=== PATIENT | female | born 1980 | race African-American/Black ===

== ENCOUNTER 2016-11-06 18:24 | Inpatient (IN) | payer MEDICAID ==
[~2016-11-06 18:24] MED LIST: GLYCOPYRROLATE INJ 0.4 MG/2 ML VIAL ONE; NEOSTIGMINE METHYLSULFATE 10 MG/10 ML VIAL ONE; ROCURONIUM BROMIDE INJ 50 MG/5 ML VIAL IV ONE; SUCCINYLCHOLINE CHLORIDE INJ 200 MG/10 ML VIAL ONE
[2016-11-06] MEDS ORDERED: MORPHINE SULFATE 10 MG/ML INJ IV ONE (18:34)
[2016-11-06] MEDS ORDERED: ONDANSETRON HCL INJ/PF 4 MG/2 ML SDV IV ONE (18:34)
[2016-11-06] MEDS ORDERED: NORMAL SALINE 1000 ML 1,000 ML IV PRN (18:34)
[2016-11-06] MEDS ORDERED: CEFAZOLIN 2 GM/D5W RTU 50 ML IV ONE (18:35)
[2016-11-06] MEDS ORDERED: DIPH/PERTUSS(ACELL)/TETANUS VAC/PF 0.5 ML SYR (>=10YO) IM ONE (18:35)
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
[2016-11-06 19:18] LABS: ABSOLUTE MONOCYTES (AUTO) 0.4 10^3/uL (0.1-1.4); ABSOLUTE NEUT (AUTO) 6.7 10^3/uL (1.7-8.2); BASOPHILS % (AUTO) 0.2 % (0-2); EOSINOPHILS % (AUTO) 0.1 % (0-6); HEMATOCRIT 37.7 % (36.0-47.0); HEMOGLOBIN 12.7 g/dL (12.0-15.5); HGB HCT DIFFERENCE 0.4; LYMPHOCYTES % (AUTO) 21.9 % (13-45); MEAN CORPUSCULAR HEMOGLOBIN 30.9 pg (27.0-33.4); MEAN CORPUSCULAR HGB CONC 33.6 g/dL (32.0-36.0); MEAN CORPUSCULAR VOLUME 92 fl (80-97); MONOCYTES % (AUTO) 4.3 % (3-13); RED BLOOD COUNT 4.11 10^6/uL (3.72-5.28); RED CELL DISTRIBUTION WIDTH 13.7 % (11.5-14.0); SEGMENTED NEUTROPHILS % (AUTO) 73.5 % (42-78); WHITE BLOOD COUNT 9.1 10^3/uL (4.0-10.5)
[2016-11-06] MEDS ORDERED: BACITRACIN INJ 50,000 UNIT VIAL ONE (19:22)
[2016-11-06] MEDS ORDERED: DEXAMETHASONE SOD PHOSPHATE INJ 4 MG/1 ML VIAL ONE (19:25)
[2016-11-06] MEDS ORDERED: MIDAZOLAM 2 MG/2 ML INJ ONE (19:25)
[2016-11-06] MEDS ORDERED: FENTANYL CITRATE INJ/PF 250 MCG/5 ML AMPULE ONE (19:25)
[2016-11-06] MEDS ORDERED: ONDANSETRON HCL INJ/PF 4 MG/2 ML SDV ONE (19:25)
[2016-11-06] MEDS ORDERED: MORPHINE SULFATE 10 MG/ML INJ ONE (19:26)
[2016-11-06] MEDS ORDERED: PROPOFOL INJ 200 MG/20 ML VIAL IV ONE (19:26)
[2016-11-06 19:30] LABS: ALANINE AMINOTRANSFERASE 58 U/L (9-52); ALBUMIN 4.1 g/dL (3.5-5.0); ALKALINE PHOSPHATASE 62 U/L (38-126); ANION GAP 9 (5-19); ASPARTATE AMINO TRANSFERASE 92 U/L (14-36); BILIRUBIN,TOTAL 0.4 mg/dL (0.2-1.3); BLOOD UREA NITROGEN 11 mg/dL (7-20); CALCIUM 9.3 mg/dL (8.4-10.2); CARBON DIOXIDE 26 mmol/L (22-30); CHLORIDE 105 mmol/L (98-107); CREATININE RESULT 0.61 mg/dL (0.52-1.25); GLUCOSE 126 mg/dL (75-110); POTASSIUM 3.7 mmol/L (3.6-5.0); SODIUM 140.1 mmol/L (137-145); TOTAL PROTEIN 6.6 g/dL (6.3-8.2)
[2016-11-06] MEDS ORDERED: BACITRACIN INJ 50,000 UNIT VIAL IR ONE (20:23)
[2016-11-06] MEDS ORDERED: PROMETHAZINE HCL INJ 25 MG/1 ML VIAL IV PRN ×2 (21:19)
[2016-11-06] MEDS ORDERED: MORPHINE SULFATE 10 MG/ML INJ IV PRN (21:19)
[2016-11-06] MEDS ORDERED: FENTANYL CITRATE INJ/PF 100 MCG/2 ML AMPUL IV PRN ×3 (21:19)
[2016-11-06] MEDS ORDERED: DIPHENHYDRAMINE HCL 50 MG/ML VIAL IV PRN (21:19)
[2016-11-06] MEDS ORDERED: MEPERIDINE HCL/PF INJ 25 MG/1 ML DISP.SYRIN IV PRN (21:19)
[2016-11-06] MEDS ORDERED: LIDOCAINE 1% INJ-PF (10 MG/ML) 30 ML SDV ONE (21:54)
[2016-11-06] MEDS ORDERED: BUPIVACAINE HCL 0.25% /EPINEPHRINE INJ/PF 30 ML SDV ONE (21:54)
[2016-11-06] MEDS ORDERED: FENTANYL CITRATE INJ/PF 100 MCG/2 ML AMPUL ONE (21:55)
[2016-11-06] MEDS ORDERED: BUPIVACAINE HCL 0.25% /EPINEPHRINE INJ/PF 30 ML SDV INJ ONE (23:01)
[2016-11-06] MEDS ORDERED: LIDOCAINE 1% INJ-PF (10 MG/ML) 30 ML SDV INJ ONE (23:02)
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
[2016-11-06] MEDS ORDERED: RINGERS SOLUTION,LACTATED 1,000 ML IV PRN (23:57)
[2016-11-06] MEDS ORDERED: ERTAPENEM SODIUM 1 GM in NORMAL SALINE 50 ML IV PRN (23:58)
[2016-11-07] MEDS ORDERED: ACETAMINOPHEN 100 ML IV ONE (00:01)
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
[2016-11-07] MEDS: ONDANSETRON HCL INJ/PF 4 MG/2 ML SDV IV PRN ×3 (01:57→17:52)
[2016-11-07] MEDS: MORPHINE SULFATE 10 MG/ML INJ IV PRN ×3 (05:45→12:30)
[2016-11-07 06:40] LABS: HEMATOCRIT 37.2 % (36.0-47.0); HEMOGLOBIN 12.5 g/dL (12.0-15.5); HGB HCT DIFFERENCE 0.3; MEAN CORPUSCULAR HEMOGLOBIN 30.8 pg (27.0-33.4); MEAN CORPUSCULAR HGB CONC 33.6 g/dL (32.0-36.0); MEAN CORPUSCULAR VOLUME 92 fl (80-97); RED BLOOD COUNT 4.06 10^6/uL (3.72-5.28); RED CELL DISTRIBUTION WIDTH 13.6 % (11.5-14.0); WHITE BLOOD COUNT 15.6 10^3/uL (4.0-10.5)
[2016-11-07 07:01] LABS: ALANINE AMINOTRANSFERASE 58 U/L (9-52); ALBUMIN 3.8 g/dL (3.5-5.0); ALKALINE PHOSPHATASE 54 U/L (38-126); ANION GAP 9 (5-19); ASPARTATE AMINO TRANSFERASE 71 U/L (14-36); BILIRUBIN,TOTAL 0.5 mg/dL (0.2-1.3); BLOOD UREA NITROGEN 8 mg/dL (7-20); CALCIUM 8.9 mg/dL (8.4-10.2); CARBON DIOXIDE 24 mmol/L (22-30); CHLORIDE 106 mmol/L (98-107); CREATININE RESULT 0.45 mg/dL (0.52-1.25); GLUCOSE 139 mg/dL (75-110); MAGNESIUM 1.6 mg/dL (1.6-2.3); PHOSPHORUS 3.7 mg/dL (2.5-4.5); POTASSIUM 4.1 mmol/L (3.6-5.0); SODIUM 139.3 mmol/L (137-145); TOTAL PROTEIN 6.1 g/dL (6.3-8.2)
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
[2016-11-07] MEDS: PANTOPRAZOLE SODIUM 40 MG VIAL IV SCH ×2 (09:30→22:01)
[2016-11-07] MEDS: DOCUSATE SODIUM 100 MG CAPSULE PO SCH ×2 (09:30→17:05)
[2016-11-07] MEDS: ENOXAPARIN SODIUM INJ 40 MG/0.4 ML DISP.SYRIN SUBCUT SCH (10:36)
[2016-11-07] MEDS ORDERED: ENOXAPARIN SODIUM INJ 40 MG/0.4 ML DISP.SYRIN SUBCUT ONE (11:00)
[2016-11-07] MEDS ORDERED: PROMETHAZINE HCL INJ 25 MG/1 ML VIAL ONE (13:04)
[2016-11-07] MEDS: HYDROMORPHONE HCL INJ/PF 2 MG/ML AMPULE IV PRN ×2 (17:52→22:01)
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
[2016-11-07] MEDS: PROMETHAZINE HCL INJ 25 MG/1 ML VIAL IV PRN (22:01)
[2016-11-08] MEDS: HYDROMORPHONE HCL INJ/PF 2 MG/ML AMPULE IV PRN ×3 (05:03→19:39)
[2016-11-08] MEDS: PROMETHAZINE HCL INJ 25 MG/1 ML VIAL IV PRN (05:03)
[2016-11-08] MEDS: ENOXAPARIN SODIUM INJ 40 MG/0.4 ML DISP.SYRIN SUBCUT SCH (08:16)
[2016-11-08] MEDS: PANTOPRAZOLE SODIUM 40 MG VIAL IV SCH ×2 (09:44→21:08)
[2016-11-08] MEDS: DOCUSATE SODIUM 100 MG CAPSULE PO SCH ×2 (09:44→17:20)
--- NOTE | 2016-11-08 11:54 | PDOC PROGRESS REPORT ---
Subjective Progress Note for:: 11/08/16 Subjective:: No nausea. Nasogastric tube draining minimal amounts of gastric contents. Physical Exam Vital Signs: Temp Pulse Resp BP Pulse Ox 97.8 F 88 22 H 145/79 H 97 11/08/16 08:00 11/08/16 08:00 11/08/16 08:00 11/08/16 08:00 11/08/16 08:00 Intake & Output 11/07/16 11/08/16 11/09/16 06:59 06:59 06:59 Intake Total 200 3477 Output Total 930 2400 Balance -730 1077 Weight 61.7 kg 61.5 kg General appearance: PRESENT: no acute distress GI/Abdominal exam: PRESENT: other - Operative dressing removed. Skin flaps viable with some irregularity at the approximation site. All intervening waleska removed from approximated tissue. Drain suction is preserved. There is some seropurulent discharge from the wound. There is no foul smell. Results Laboratory Results: 11/07/16 05:56 11/07/16 05:56 Impressions: Fluoroscopy 11/06/16 00:00 IMPRESSION: IMAGE(S) OBTAINED DURING PROCEDURE. Abdomen/Pelvis CT 11/06/16 18:33 IMPRESSION: SOFT TISSUE INJURY INVOLVING THE ABDOMINAL WALL INCLUDING SUBCUTANEOUS EMPHYSEMA WHICH COURSES DEEP TO THE RIGHT DISTAL RADIUS ANTERIOR MUSCLE BUT REMAINS SUPERFICIAL TO THE OBLIQUE AND RECTUS ABDOMINIS MUSCLES. CORRELATE WITH PHYSICAL EXAM FINDINGS AND MECHANISM OF INJURY. NO DEFINITE EVIDENCE OF PERITONEAL/INTRAABDOMINAL INVOLVEMENT. Chest X-Ray 11/06/16 18:34 IMPRESSION: NO ACUTE RADIOGRAPHIC FINDING IN THE CHEST. Wrist X-Ray 11/06/16 18:34 IMPRESSION: DISTAL RADIAL FRACTURE ABOVE. Assessment & Plan - Diagnosis (1) Injury of abdominal wall Qualifiers: Encounter type: initial encounter Qualified Code(s): S39.81XA - Other specified injuries of abdomen, initial encounter Is this a current diagnosis for this admission?: YesPlan: 1. Patient is 2 days status post exploratory laparotomy, debridement of abdominal wall drain placement, primary anastomosis. He doing reasonably well however her abdominal wall injury may require additional drainage and/or evacuation; this was emphasized to the patient 2. Clamp NG tube, if this is tolerated, we will remove it Review. Will attempt to get her up out of bed into chair which will be difficult given her left arm fracture which has been stabilized, however patient is motivated.
[2016-11-08] MEDS: ERTAPENEM SODIUM 1 GM in NORMAL SALINE 50 ML IV SCH (15:27)
[2016-11-09] MEDS: HYDROMORPHONE HCL INJ/PF 2 MG/ML AMPULE IV PRN ×3 (00:32→13:46)
[2016-11-09] MEDS: ENOXAPARIN SODIUM INJ 40 MG/0.4 ML DISP.SYRIN SUBCUT SCH (07:36)
[2016-11-09] MEDS: PANTOPRAZOLE SODIUM 40 MG VIAL IV SCH ×2 (10:08→22:41)
[2016-11-09] MEDS: DOCUSATE SODIUM 100 MG CAPSULE PO SCH ×2 (10:09→17:39)
--- NOTE | 2016-11-09 11:56 | PDOC PROGRESS REPORT ---
Subjective Progress Note for:: 11/09/16 Subjective:: Patient hiking in the halls, voiding, tolerating clear liquids. Physical Exam Vital Signs: Temp Pulse Resp BP Pulse Ox 98.1 F 84 16 132/68 H 100 11/09/16 07:33 11/09/16 07:33 11/09/16 07:33 11/09/16 07:33 11/09/16 07:33 Intake & Output 11/08/16 11/09/16 11/10/16 06:59 06:59 06:59 Intake Total 3477 3032 Output Total 2400 630 Balance 1077 2402 Weight 61.5 kg 62.3 kg General appearance: PRESENT: no acute distress GI/Abdominal exam: PRESENT: other - Midline wound examined. Less hostility less drainage. Serous sanguinous fluid out of both drains. Results Laboratory Results: 11/07/16 05:56 11/07/16 05:56 Impressions: Fluoroscopy 11/06/16 00:00 IMPRESSION: IMAGE(S) OBTAINED DURING PROCEDURE. Abdomen/Pelvis CT 11/06/16 18:33 IMPRESSION: SOFT TISSUE INJURY INVOLVING THE ABDOMINAL WALL INCLUDING SUBCUTANEOUS EMPHYSEMA WHICH COURSES DEEP TO THE RIGHT DISTAL RADIUS ANTERIOR MUSCLE BUT REMAINS SUPERFICIAL TO THE OBLIQUE AND RECTUS ABDOMINIS MUSCLES. CORRELATE WITH PHYSICAL EXAM FINDINGS AND MECHANISM OF INJURY. NO DEFINITE EVIDENCE OF PERITONEAL/INTRAABDOMINAL INVOLVEMENT. Chest X-Ray 11/06/16 18:34 IMPRESSION: NO ACUTE RADIOGRAPHIC FINDING IN THE CHEST. Wrist X-Ray 11/06/16 18:34 IMPRESSION: DISTAL RADIAL FRACTURE ABOVE. Assessment & Plan - Diagnosis (1) Injury of abdominal wall Qualifiers: Encounter type: initial encounter Qualified Code(s): S39.81XA - Other specified injuries of abdomen, initial encounter Is this a current diagnosis for this admission?: Yes (2) Abdominal injury Qualifiers: Encounter type: initial encounter Qualified Code(s): S39.91XA - Unspecified injury of abdomen, initial encounter Is this a current diagnosis for this admission?: YesPlan: 1. Patient making good progress now 3 days status post floor towards surgery right hemicolectomy abdominal wall debridement and drainage. She is extremely motivated and doing well. 2. Will switch her to by mouth pain medication, advance diet, Hep-Lock IV, and keep drains in place and continue intravenous antibiotics.
[2016-11-09] MEDS: ERTAPENEM SODIUM 1 GM in NORMAL SALINE 50 ML IV SCH (14:09)
[2016-11-09] MEDS ORDERED: DOCUSATE SODIUM 100 MG/10 ML UDC PO SCH (18:00)
[2016-11-09] MEDS: OXYCODONE-ACETAMINOPHEN 5-325 MG TABLET PO PRN (19:10)
[2016-11-10] MEDS: OXYCODONE-ACETAMINOPHEN 5-325 MG TABLET PO PRN ×4 (00:08→20:53)
[2016-11-10] MEDS: ENOXAPARIN SODIUM INJ 40 MG/0.4 ML DISP.SYRIN SUBCUT SCH (08:08)
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
[2016-11-10] MEDS: DOCUSATE SODIUM 100 MG CAPSULE PO SCH ×2 (10:23→17:06)
[2016-11-10] MEDS ORDERED: BISACODYL 10 MG SUPP.RECT PR PRN (18:32)
[2016-11-10] MEDS: ERTAPENEM SODIUM 1 GM in NORMAL SALINE 50 ML IV SCH (20:33)
[2016-11-11] MEDS: OXYCODONE-ACETAMINOPHEN 5-325 MG TABLET PO PRN ×4 (02:49→20:41)
[2016-11-11] MEDS: DOCUSATE SODIUM 100 MG CAPSULE PO SCH ×2 (09:40→18:44)
[2016-11-11] MEDS: ENOXAPARIN SODIUM INJ 40 MG/0.4 ML DISP.SYRIN SUBCUT SCH (11:59)
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
[2016-11-11] MEDS: ERTAPENEM SODIUM 1 GM in NORMAL SALINE 50 ML IV SCH (15:22)
[2016-11-12] MEDS: OXYCODONE-ACETAMINOPHEN 5-325 MG TABLET PO PRN ×3 (01:14→11:06)
[2016-11-12] MEDS: AMOXICILLIN TR/POT CLAVULANATE 500-125 MG TAB PO SCH ×2 (06:22→11:41)
[2016-11-12] MEDS: ENOXAPARIN SODIUM INJ 40 MG/0.4 ML DISP.SYRIN SUBCUT SCH (08:39)
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
[2016-11-12 11:38] VITALS: BP 135/84
[2016-11-12] MEDS: DOCUSATE SODIUM 100 MG CAPSULE PO SCH (11:42)
== END 2016-11-12 12:56 | disposition home or self-care (01) | DRG 330 ==
LOC: ER 18:24 → UNDOADMIN 19:31 → EH 19:31 → UNDOADMIN 23:49 → 4S 11-07 01:30 → EH 11-07 01:30
PROVIDERS: ADMIT Surgery; ATTEND Surgery
PROC: 0PSJXZZ Reposition Left Radius, External Approach (ICD-10-PCS; 2016-11-06)
PROC: 0DTF0ZZ Resection of Right Large Intestine, Open Approach (ICD-10-PCS; principal; 2016-11-06 19:30)
DX: S36.50 Unspecified injury of colon (principal); T79.7XXA Traumatic subcutaneous emphysema, initial encounter; S52.502A Unspecified fracture of the lower end of left radius, initial encounter for closed fracture; S39.81XA Other specified injuries of abdomen, initial encounter; G43.909 Migraine, unspecified, not intractable, without status migrainosus; Z91.041 Radiographic dye allergy status; F17.210 Nicotine dependence, cigarettes, uncomplicated; D25.9 Leiomyoma of uterus, unspecified; T14.8 Other injury of unspecified body region; V27.0XXA Motorcycle driver injured in collision with fixed or stationary object in nontraffic accident, initial encounter; Y93.55 Activity, bike riding; Y92.096 Garden or yard of other non-institutional residence as the place of occurrence of the external cause; Z83.3 Family history of diabetes mellitus; Z82.49 Family history of ischemic heart disease and other diseases of the circulatory system; Z80.3 Family history of malignant neoplasm of breast; Z86.14 Personal history of Methicillin resistant Staphylococcus aureus infection
CPT/HCPCS: 00790; 36415; 71010; 74176; 80053; 83735; 84100; 84703; 85025; 85027; 86850; 86900; 86901; 88307; 90471; 90715; 94799; 96365; 96375; 99291; J0131; J0330; J0690; J1100; J1170; J1335; J1650; J2250; J2270; J2405; J2550; J2704; J3010; J3490; J7030; J7120; S0164

== ENCOUNTER 2016-11-15 14:54 | Emergency (ER) | payer MEDICAID ==
[2016-11-15 15:01] VITALS: BP 119/78
--- NOTE | 2016-11-15 15:16 | ER Document Report ---
ED Medical Screen (RME) - General Stated Complaint: PAIN/DRAINAGE AT SURGERY SITE Time seen by provider: 15:12 Mode of Arrival: Wheelchair Information source: Patient Notes: 36-year-old female presents to ED with a colectomy when they took the left half of her colon out. She was told to come to the ER she had any drainage. She has serosanguineous drainage at the site which is covered by draining dressings and abdominal binder. I have greeted and performed a rapid initial assessment of this patient. A comprehensive ED assessment and evaluation of the patient, analysis of test results and completion of medical decision making process will be conducted by an additional ED providers. TRAVEL OUTSIDE OF THE [place] 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
[2016-11-15 15:45] LABS: ABSOLUTE LYMPHOCYTES (AUTO) 1.6 10^3/uL (0.5-4.7); ABSOLUTE MONOCYTES (AUTO) 0.5 10^3/uL (0.1-1.4); BASOPHILS % (AUTO) 0.7 % (0-2); EOSINOPHILS % (AUTO) 0.9 % (0-6); HEMATOCRIT 36.3 % (36.0-47.0); HEMOGLOBIN 12.4 g/dL (12.0-15.5); HGB HCT DIFFERENCE 0.9; LYMPHOCYTES % (AUTO) 30.6 % (13-45); MEAN CORPUSCULAR HEMOGLOBIN 31.3 pg (27.0-33.4); MEAN CORPUSCULAR HGB CONC 34.3 g/dL (32.0-36.0); MEAN CORPUSCULAR VOLUME 91 fl (80-97); MONOCYTES % (AUTO) 9.8 % (3-13); RED BLOOD COUNT 3.98 10^6/uL (3.72-5.28); RED CELL DISTRIBUTION WIDTH 13.7 % (11.5-14.0); WHITE BLOOD COUNT 5.2 10^3/uL (4.0-10.5)
[2016-11-15 15:51] LABS: APPEARANCE,URINE CLEAR; BILIRUBIN,URINE NEGATIVE (NEGATIVE); GLUCOSE, URINE NEGATIVE (NEGATIVE); KETONES,URINE NEGATIVE (NEGATIVE); LEUKOCYTE ESTERASE,URINE TRACE (NEGATIVE); NITRITE,URINE NEGATIVE (NEGATIVE); PROTEIN,URINE NEGATIVE (NEGATIVE); URINE SPECIFIC GRAVITY 1.016; UROBILINOGEN,URINE NEGATIVE mg/dL (<2.0)
[2016-11-15 16:03] LABS: ALANINE AMINOTRANSFERASE 53 U/L (9-52); ALBUMIN 4.2 g/dL (3.5-5.0); ALKALINE PHOSPHATASE 60 U/L (38-126); ANION GAP 11 (5-19); ASPARTATE AMINO TRANSFERASE 42 U/L (14-36); BILIRUBIN,TOTAL 0.5 mg/dL (0.2-1.3); BLOOD UREA NITROGEN 10 mg/dL (7-20); CARBON DIOXIDE 27 mmol/L (22-30); CHLORIDE 102 mmol/L (98-107); CREATININE RESULT 0.43 mg/dL (0.52-1.25); GLUCOSE 97 mg/dL (75-110); LIPASE 118.6 U/L (23-300); POTASSIUM 4.1 mmol/L (3.6-5.0)
--- NOTE | 2016-11-15 16:26 | ER Document Report ---
[id number]/DRAINAGE AT SURGERY SITE Mode of Arrival: Wheelchair Information source: Patient Notes: 36-year-old female who had a colectomy performed after she was punctured by a tree branch one week ago presents with complaints of concerns for discharge of the incision site. Patient denies any fevers or chills nausea vomiting or diarrhea. Patient denies any abdominal pain that is new. Patient notes the drainage is clear but her discharge instructions told her to return immediately if there is any discharge and therefore she does present with clear discharge TRAVEL OUTSIDE OF THE [place] IN LAST 30 DAYS: No - HPI Onset: Just prior to arrival Onset/Duration: Sudden Quality of pain: No pain Severity: Mild Pain Level: Denies Associated symptoms: None Exacerbated by: Denies Relieved by: Denies Similar symptoms previously: Yes Recently seen / treated by doctor: Yes - Related Data Allergies/Adverse Reactions: Iodinated Contrast Media - Oral and [IV Dye, Iodine Containing] Allergy ( Verified 11/15/16 15:16) shellfish derived Allergy (Verified 11/15/16 15:16) Past Medical History - General Information source: Patient - Social History Smoking Status: Former Smoker Cigarette use (# per day): No Chew tobacco use (# tins/day): No Smoking Education Provided: No Frequency of alcohol use: None Drug Abuse: None Family History: Reviewed & Not Pertinent Patient has suicidal ideation: No Patient has homicidal ideation: No Neurological Medical History: Reports: Hx Migraine Renal/ Medical History: Denies: Hx Peritoneal Dialysis Skin Medical History: Reports Hx MRSA Past Surgical History: Reports: Hx Abdominal Surgery, Hx Section - x2, Other - Penetrating abdominal trauma with bowel resection - Immunizations Immunizations up to date: Yes Hx Diphtheria, Pertussis, Tetanus Vaccination: Yes Review of Systems - Review of Systems Notes: PHYSICAL EXAMINATION: GENERAL: Well-appearing, well-nourished and in no acute distress. HEAD: Atraumatic, normocephalic. EYES: Pupils equal round and reactive to light, extraocular movements intact, conjunctiva are normal. ENT: Nares patent, oropharynx clear without exudates. Moist mucous membranes. NECK: Normal range of motion, supple without lymphadenopathy LUNGS: Breath sounds clear to auscultation bilaterally and equal. No wheezes rales or rhonchi. HEART: Regular rate and rhythm without murmurs ABDOMEN: Soft, large midline incision stapled well healed with small area of clear discharge without any erythema, no pus noted , no warmth Female : deferred Musculoskeletal: Normal range of motion, no pitting or edema. No cyanosis. Left arm in splint NEUROLOGICAL: Cranial nerves grossly intact. Normal speech, normal gait. Normal sensory, motor exams PSYCH: Normal mood, normal affect. SKIN: Warm, Dry, normal turgor, no rashes or lesions noted. Physical Exam - Vital signs Vitals: Temp Pulse Resp BP Pulse Ox 98.1 F 79 20 119/78 99 11/15/16 15:01 11/15/16 15:01 11/15/16 15:01 11/15/16 15:01 11/15/16 15:01 Course - Re-evaluation Re-evalutation: 11/15/16 19:37 Evaluation notes no abnormalities. Patient is stable. Very strict return precautions were provided After performing a Medical Screening Examination, I estimate there is LOW risk for OPEN FRACTURE, COMPARTMENT SYNDROME, TENDON RUPTURE, ACUTE NEUROVASCULAR INJURY, or RETAINED FOREIGN BODY, thus I consider the discharge disposition reasonable. Also, there is no evidence or peritonitis, sepsis, or toxicity. The patient and I have discussed the diagnosis and risks, and we agree with discharging home with close follow-up with the understanding that symptoms and presentations can change. We also discussed returning to the Emergency Department immediately if new or worsening symptoms occur. We have discussed the symptoms which are most concerning (e.g., changing or worsening pain, fever , numbness, weakness, cool or painful digits) that necessitate immediate return. - Vital Signs Vital signs: Temp Pulse Resp BP Pulse Ox 98.1 F 79 18 119/78 99 11/15/16 15:01 11/15/16 15:01 11/15/16 16:05 11/15/16 15:01 11/15/16 15:01 - Laboratory Result Diagrams: 11/15/16 15:23 11/15/16 15:23 Laboratory results interpreted by me: 11/15/16 11/15/16 15:23 15:23 Creatinine 0.43 L AST 42 H ALT 53 H Urine Blood SMALL H Ur Leukocyte Esterase TRACE H Discharge - Discharge Clinical Impression: surgical incision drainage Condition: Stable Disposition: HOME, SELF-CARE Additional Instructions: Return immediately if there is any sign of fever redness thick pus discharge Or any other concerns
== END 2016-11-15 16:38 | disposition home or self-care (01) ==
LOC: ER 14:54
DX: Z48.815 Encounter for surgical aftercare following surgery on the digestive system (principal); Z90.49 Acquired absence of other specified parts of digestive tract
CPT/HCPCS: 36415; 80053; 81001; 83690; 85025; 99283

== ENCOUNTER → 2016-11-19 | Outpatient (CLI) | payer MEDICAID | LOC: OD 11:34 | PROVIDERS: ATTEND Physician Assistant | DX: M25.561 Pain in right knee (principal); M25.562 Pain in left knee ==

== ENCOUNTER 2017-01-27 06:32 | Day surgery (SDC) | payer MEDICAID ==
[2017-01-25 12:23] LABS: ABSOLUTE LYMPHOCYTES (AUTO) 1.3 10^3/uL (0.5-4.7); ABSOLUTE MONOCYTES (AUTO) 0.3 10^3/uL (0.1-1.4); ABSOLUTE NEUT (AUTO) 2.7 10^3/uL (1.7-8.2); BASOPHILS % (AUTO) 0.5 % (0-2); EOSINOPHILS % (AUTO) 0.1 % (0-6); HEMATOCRIT 36.8 % (36.0-47.0); HEMOGLOBIN 12.5 g/dL (12.0-15.5); HGB HCT DIFFERENCE 0.7; LYMPHOCYTES % (AUTO) 29.7 % (13-45); MEAN CORPUSCULAR HEMOGLOBIN 31.8 pg (27.0-33.4); MEAN CORPUSCULAR VOLUME 94 fl (80-97); MONOCYTES % (AUTO) 6.9 % (3-13); RED BLOOD COUNT 3.94 10^6/uL (3.72-5.28); RED CELL DISTRIBUTION WIDTH 13.6 % (11.5-14.0); SEGMENTED NEUTROPHILS % (AUTO) 62.8 % (42-78); WHITE BLOOD COUNT 4.4 10^3/uL (4.0-10.5)
[2017-01-25 12:29] LABS: AMORPHOUS SEDIMENT,URINE TRACE /HPF; APPEARANCE,URINE CLOUDY; BILIRUBIN,URINE NEGATIVE (NEGATIVE); GLUCOSE, URINE NEGATIVE (NEGATIVE); KETONES,URINE NEGATIVE (NEGATIVE); LEUKOCYTE ESTERASE,URINE NEGATIVE (NEGATIVE); NITRITE,URINE NEGATIVE (NEGATIVE); PROTEIN,URINE NEGATIVE (NEGATIVE); URINE SPECIFIC GRAVITY 1.017; UROBILINOGEN,URINE NEGATIVE mg/dL (<2.0)
[2017-01-25 13:00] LABS: ANION GAP 9 (5-19); BLOOD UREA NITROGEN 7 mg/dL (7-20); CALCIUM 9.5 mg/dL (8.4-10.2); CARBON DIOXIDE 25 mmol/L (22-30); CHLORIDE 106 mmol/L (98-107); CREATININE RESULT 0.47 mg/dL (0.52-1.25); GLUCOSE 79 mg/dL (75-110); POTASSIUM 4.4 mmol/L (3.6-5.0); SODIUM 139.8 mmol/L (137-145)
--- NOTE | 2017-01-25 21:25 | EKG REPORT ---
SEVERITY:- NORMAL ECG - SINUS RHYTHM : Confirmed by: Arsenio Mariee 25-Jan-2017 21:24:46
[~2017-01-27 06:32] MED LIST changes: +CEFAZOLIN 2 GM/D5W RTU 2 GM/50 ML RTUPB IV PRN; -GLYCOPYRROLATE INJ 0.4 MG/2 ML VIAL ONE; +LACTATED RINGERS 1000 ML IV PRN; +LIDOCAINE 0.5% INJ-PF (5 MG/ML) 50 ML SDV SUBCUT PRN; -NEOSTIGMINE METHYLSULFATE 10 MG/10 ML VIAL ONE; -ROCURONIUM BROMIDE INJ 50 MG/5 ML VIAL IV ONE; -SUCCINYLCHOLINE CHLORIDE INJ 200 MG/10 ML VIAL ONE
[2017-01-27] MEDS ORDERED: FAMOTIDINE INJ/PF 20 MG/2 ML SDV IV ONE (07:13)
[2017-01-27] MEDS ORDERED: SCOPOLAMINE HYDROBROMIDE 1.5 MG PATCH.TD72 ONE (07:13)
[2017-01-27] MEDS ORDERED: BUPIVACAINE HCL 0.25% /EPINEPHRINE INJ/PF 30 ML SDV ONE (07:20)
[2017-01-27] MEDS ORDERED: MIDAZOLAM 2 MG/2 ML INJ ONE (08:19)
[2017-01-27] MEDS ORDERED: PROPOFOL INJ 200 MG/20 ML VIAL IV ONE (08:19)
[2017-01-27] MEDS ORDERED: FENTANYL CITRATE INJ/PF 250 MCG/5 ML AMPULE ONE (08:19)
[2017-01-27] MEDS ORDERED: ACETAMINOPHEN 100 ML IV ONE (08:19)
[2017-01-27] MEDS ORDERED: PROMETHAZINE HCL INJ 25 MG/1 ML VIAL IV PRN ×2 (08:47)
[2017-01-27] MEDS ORDERED: FENTANYL CITRATE INJ/PF 100 MCG/2 ML AMPUL IV PRN ×3 (08:47)
[2017-01-27] MEDS ORDERED: MORPHINE SULFATE 10 MG/ML INJ IV PRN (08:47)
[2017-01-27] MEDS ORDERED: MEPERIDINE HCL/PF INJ 25 MG/1 ML DISP.SYRIN IV PRN (08:47)
[2017-01-27] MEDS ORDERED: DIPHENHYDRAMINE HCL 50 MG/ML VIAL IV PRN (08:47)
[2017-01-27] MEDS ORDERED: OXYCODONE-ACETAMINOPHEN 5-325 MG TABLET PO PRN ×2 (08:47)
--- NOTE | 2017-01-27 09:54 | Operative Report ---
Operative Report DATE OF SURGERY: 01/27/17 PREOPERATIVE DIAGNOSIS: Left distal radial fracture/malunion OPERATION: Takedown of the nonunion, open reduction internal fixation of left distal radius fracture. With intra-articular component SURGEON: MADELIN JEAN ANESTHESIA: GA PROCEDURE: The patient supine. The operative table left upper extremity was prepped and draped in a sterile fashion. The limb was elevated for exsanguination tourniquet inflated 250 torr. A volar approach the digits to the distal radius. Is taken. In the interval between the flexor carpi radialis tendon and the radial neural vascular bundle. The pronator quadratus was retracted medially. The underlying nonunion is identified. It is developed using a combination of a 15 blade and days hand osteotome so that there is mobility across both the intra-articular component of fracture as well as the metaphyseal components. The dorsiflexion deformity is corrected and held held in place with a Steinmann pin through the radial styloid. The intra-articular component was reduced anatomically, both by direct sedation fluoroscopy. Subsequently a Highland 4-hole narrow titanium volar distal radius plate is applied and secured to the distal fragment. The proximal end of the plate is then brought back down to the diaphysis of the radius, which corrects the dorsiflexion deformity. The remaining holes in the plate are then filled in with a combination of cortical and locking screws. The reduction and hardware placement was checked fluoroscopically and felt to be adequate. The tourniquet was deflated. The wound is irrigated. Hemostasis obtained with bipolar cautery. The wound is then closed in layers using interrupted Vicryl followed by nylon. A sterile dressing is applied and the patient's returned to PACU in satisfactory condition.
[2017-01-27] MEDS: FENTANYL CITRATE INJ/PF 100 MCG/2 ML AMPUL ONE ×2 (09:57→10:04)
[2017-01-27] MEDS: HYDROMORPHONE HCL INJ/PF 2 MG/ML AMPULE ONE ×4 (10:17→11:12)
[2017-01-27] MEDS ORDERED: HYDROCODONE/ACETAMINOPHEN 5-325 MG TABLET PO PRN (10:25)
[2017-01-27] MEDS ORDERED: ONDANSETRON 4 MG TAB.RAPDIS SL PRN (10:26)
[2017-01-27] MEDS ORDERED: HYDROMORPHONE HCL INJ/PF 2 MG/ML AMPULE ONE (11:14)
[2017-01-27] MEDS ORDERED: HYDROMORPHONE HCL INJ/PF 2 MG/ML AMPULE IV PRN (11:22)
[2017-01-27] MEDS ORDERED: ONDANSETRON HCL INJ/PF 4 MG/2 ML SDV ONE (11:35)
[2017-01-27] MEDS ORDERED: DEXAMETHASONE SOD PHOSPHATE INJ 4 MG/1 ML VIAL ONE (11:35)
[2017-01-27] MEDS ORDERED: LIDOCAINE 2% INJ-PF (20 MG/ML) 10 ML AMPUL ONE (11:35)
[2017-01-27] MEDS ORDERED: SUCCINYLCHOLINE CHLORIDE INJ 200 MG/10 ML VIAL ONE (11:35)
[2017-01-27 13:14] VITALS: BP 111/78
== END 2017-01-27 13:10 | disposition home or self-care (01) ==
LOC: OROUT 06:32
PROVIDERS: ATTEND Orthopaedic Surgery
PROC: 0PSJ04Z Reposition Left Radius with Internal Fixation Device, Open Approach (ICD-10-PCS; principal; 2017-01-27 09:00)
DX: S52.532D Colles' fracture of left radius, subsequent encounter for closed fracture with routine healing (principal); V29.9XXD Motorcycle rider (driver) (passenger) injured in unspecified traffic accident, subsequent encounter
CPT/HCPCS: 93005; 36415; 85025; 81025; 80048; 81001; 71020; 73100; 93010; 25400; C1713 ×2; J2250; J3490 ×3; J1100; S0119; J3010 ×2; J1170; J0330; J2405; J2704; S0028; J0690; J0131; 01830

== ENCOUNTER 2017-03-07 13:03 | Emergency (ER) | payer MEDICAID ==
[2017-03-07] MEDS ORDERED: OXYCODONE-ACETAMINOPHEN 5-325 MG TABLET PO ONE (14:09)
[2017-03-07] MEDS ORDERED: LIDOCAINE 5% (700 MG) TRANSDERMAL ADH..PATCH TP ONE (14:12)
--- NOTE | 2017-03-07 14:14 | ER Document Report ---
HPI - HPI Patient complains to provider of: back pain Onset: Yesterday Onset/Duration: Gradual Quality of pain: Sharp Pain Level: 4 Context: Pt complains of left lower back pain that she states radiates into her right leg. Patient denies any injury. Patient denies any fever, urinary retention or incontinence or any previous history of low back pain. Associated Symptoms: Other - low back cam. denies: Headache Exacerbated by: Standing, Movement Relieved by: Denies Similar symptoms previously: No Recently seen / treated by doctor: No - ROS ROS below otherwise negative: Yes Systems Reviewed and Negative: Yes All other systems reviewed and negative - CONSTITUTIONAL Constitutional: DENIES: Fever - NEURO Neurology: DENIES: Headache, Weakness - GASTROINTESTINAL Gastrointestinal: DENIES: Nausea, Patient vomiting - URINARY Notes: no retention - REPRODUCTIVE Reproductive: DENIES: : - MUSCULOSKELETAL Musculoskeletal: REPORTS: Extremity pain, Back Pain - DERM Skin Color: Normal Skin Problems: None Past Medical History - General Information source: Patient - Social History Smoking Status: Current Every Day Smoker Frequency of alcohol use: None Drug Abuse: None Occupation: none Lives with: Family Family History: Reviewed & Not Pertinent - Past Medical History Cardiac Medical History: Denies: Hx Coronary Artery Disease, Hx Heart Attack, Hx Hypertension Pulmonary Medical History: Denies: Hx Asthma, Hx Bronchitis, Hx COPD, Hx Pneumonia Neurological Medical History: Reports: Hx Migraine. Denies: Hx Cerebrovascular Accident, Hx Seizures Endocrine Medical History: Denies: Hx Diabetes Mellitus Type 2 Renal/ Medical History: Denies: Hx Peritoneal Dialysis Musculoskeltal Medical History: Denies Hx Arthritis Skin Medical History: Reports Hx MRSA Past Surgical History: Reports: Hx Abdominal Surgery, Hx Section - x2, Other - Penetrating abdominal trauma with bowel resection - Immunizations Immunizations up to date: Yes Hx Diphtheria, Pertussis, Tetanus Vaccination: Yes - 09/20/15 Vertical Provider Document - CONSTITUTIONAL Agree With Documented VS: Yes Exam Limitations: No Limitations General Appearance: WD/WN, No Apparent Distress Notes: PHYSICAL EXAMINATION: GENERAL: pt resting in heel chest position, well-nourished HEAD: Atraumatic, normocephalic. EYES: sclera clear, anicteric, conjunctiva are normal. ENT: nares patent, Moist mucous membranes. NECK: Normal range of motion, supple no lymphadenopathy LUNGS: respirations unlabored HEART: Regular rate and rhythm without murmurs EXTREMITIES: Normal range of motion, no pitting or edema. No cyanosis. Gait normal, pt ambulates without difficulty BACK: Left lower lumbar paraspinal, no midline tenderness, no deformities or step-offs. No CVA tenderness. NEUROLOGICAL: Cranial nerves grossly intact. Normal speech. No saddle anesthesia. Foot drop. 2+ bilateral patellar and Achilles reflexes PSYCH: Patient aggravated, giving short replies to any questions, poor eye contact SKIN: Warm, Dry, normal turgor, no rashes or lesions noted. - INFECTION CONTROL TRAVEL OUTSIDE OF THE [place] IN LAST 30 DAYS: No - RESPIRATORY O2 Sat by Pulse Oximetry: 100 Course - Re-evaluation Re-evalutation: 03/07/17 14:11 Discussed plan of care with patient, patient angrily states that she should have gone to a different facility. Provider attempted to discern what exactly patient was concerned about with her plan of care today. Provider explained to patient that x-rays would likely not be of use as patient did not have any type of traumatic back injury and was not having any neurologic symptoms that would warrant emergent imaging today. Patient advised that provider would be happy to treat her pain symptoms and give her prescription pain medicine as an outpatient basis. Patient encouraged to follow-up with her primary doctor for recheck. Patient refused to answer any additional questions and avoided eye contact. 03/07/17 14:12 The patient presents with low back pain without signs of spinal cord compression , cauda equina syndrome, infection, aneurysm, or other serious etiology. The patient is neurologically intact. Given the extremely risk of these diagnoses further testing and evaluation for these possibilities does not appear to be indicated at this time. Patient has been instructed to return if the symptoms worsen or change in any way. 03/07/17 The patient's previous ER visits does demonstrate that patient had low back pain that radiated into her right lower extremity upwards of 5 years ago in the past. - Vital Signs Vital signs: Temp Pulse Resp BP Pulse Ox 98.3 F 74 16 150/83 H 100 03/07/17 13:07 03/07/17 13:07 03/07/17 13:07 03/07/17 13:07 03/07/17 13:07 Discharge - Discharge Clinical Impression: Low back pain Qualifiers: Chronicity: acute Back pain laterality: left Sciatica presence: with sciatica Sciatica laterality: sciatica of right side Qualified Code(s): M54.41 - Lumbago with sciatica, right side Disposition: HOME, SELF-CARE Instructions: Ice Packs ([facility]), Oral Narcotic Medication ([facility]), Low Back Pain ( [facility]) Additional Instructions: Return immediately for any new or worsening symptoms Followup with your primary care provider, call tomorrow to make a followup appointment Your blood pressure was elevated today, recheck with your primary doctor this week to have it reevaluated. Avoid any heavy lifting You may use topical over the counter lidocaine patches as directed Prescriptions: Oxycodone HCl/Acetaminophen [Percocet 5-325 mg Tablet] 1 - 2 tab PO ASDIR PRN # 15 tablet PRN Reason: Forms: Elevated Blood Pressure Referrals: ANDRA MANRIQUEZ MD [Primary Care Provider] - Follow up in 3-5 days
[2017-03-07 14:55] VITALS: BP 123/76
== END 2017-03-07 14:31 | disposition home or self-care (01) ==
LOC: ER 13:03
DX: M54.41 Lumbago with sciatica, right side (principal); F17.200 Nicotine dependence, unspecified, uncomplicated
CPT/HCPCS: 99283; J3490

== ENCOUNTER → 2017-03-17 | Outpatient (CLI) | payer MEDICAID ==
--- NOTE | 2017-03-17 15:37 | RADIOLOGY REPORT (SQ) ---
EXAM DESCRIPTION: LUMBAR SPINE COMPLETE COMPLETED DATE/TIME: 03/17/2017 3:14 pm REASON FOR STUDY: LUMBAGO WITH SCIATICA, RIGHT SIDE M54.41 LUMBAGO WITH SCIATICA, RIGHT SIDE COMPARISON: 12/04/2010 NUMBER OF VIEWS: Five views including obliques. TECHNIQUE: AP, lateral, oblique, and sacral radiographic images acquired of the lumbar spine. LIMITATIONS: None. FINDINGS: MINERALIZATION: Normal. SEGMENTATION: Normal. No transitional anatomy. ALIGNMENT: Normal. VERTEBRAE: Maintained height. No fracture or worrisome bone lesion. DISCS: Preserved height. No significant osteophytes or end plate irregularity. POSTERIOR ELEMENTS: Pedicles and facets are intact. No pars defect or posterior arch defects. HARDWARE: None in the spine. PARASPINAL SOFT TISSUES: Normal. PELVIS: Intact as visualized. No fractures or worrisome bone lesions. SI joints intact. OTHER: No other significant finding. IMPRESSION: NORMAL 5 VIEW LUMBAR SPINE. TECHNICAL DOCUMENTATION: JOB ID: [id number] [employer]gram- All Rights Reserved
== END ==
LOC: OD 14:58
PROVIDERS: ATTEND Physician Assistant
DX: M54.41 Lumbago with sciatica, right side (principal)
CPT/HCPCS: 72110

== ENCOUNTER 2017-08-18 16:25 | Emergency (ER) | payer MEDICAID, OTHER ==
[2017-08-18 18:06] LABS: APPEARANCE,URINE CLEAR; BILIRUBIN,URINE NEGATIVE (NEGATIVE); GLUCOSE, URINE NEGATIVE (NEGATIVE); KETONES,URINE NEGATIVE (NEGATIVE); LEUKOCYTE ESTERASE,URINE NEGATIVE (NEGATIVE); NITRITE,URINE NEGATIVE (NEGATIVE); PROTEIN,URINE NEGATIVE (NEGATIVE); URINE SPECIFIC GRAVITY 1.014; UROBILINOGEN,URINE NEGATIVE mg/dL (<2.0)
--- NOTE | 2017-08-18 18:34 | ER Document Report ---
HPI - HPI Pain Level: 4 Notes: Patient is a 37-year-old female who presents to the ED c/o intermittent vaginal bleeding over the last 2mos while being on her depo shot and occ low back pain. Pt states that she has been on this shot for 2 years and has not had issues in the past. Patient has not been evaluated by an CALIBRATION TECHNICIAN for this issue. Patient denies any other vaginal discharge or odor. Patient states that she was evaluated by her PCM who directed her to the ED because of possible protein in her urine. Pt states that she does on occasion have increased urinary frequency but no dysuria. Patient denies any other significant past medical history. She denies any drug allergies. Her back pain does not radiate and is described as a soreness b/l Low back. No injections or surgeries to her back. No injury. Denies any headache, fever, neck pain, URI, sore throat, chest pain , palpitations, syncope, cough, shortness of breath, wheeze, dyspnea, abdominal pain, nausea/vomiting/diarrhea, urinary retention, dysuria, hematuria, loss of control of bowel or bladder, numbness/tingling, saddle anesthesia, muscle paralysis/weakness, or rash. - ROS Notes: REVIEW OF SYSTEMS: CONSTITUTIONAL : Denies fever, chills, or sweats. Denies recent illness. EENT: Denies eye, ear, throat, or mouth pain or symptoms. Denies nasal or sinus congestion or discharge. Denies throat, tongue, or mouth swelling or difficulty swallowing. CARDIOVASCULAR: Denies chest pain. Denies palpitations or racing or irregular heart beat. Denies ankle edema. RESPIRATORY: Denies cough, cold, or chest congestion. Denies shortness of breath, difficulty breathing, or wheezing. GASTROINTESTINAL: Denies abdominal pain or distention. Denies nausea, vomiting , or diarrhea. GENITOURINARY: Denies difficulty urinating, painful urination, burning, frequency, blood in urine, or discharge. : see hpi. MUSCULOSKELETAL: see hpi SKIN: Denies rash, lesions or sores. NEUROLOGICAL: Denies confusion or altered mental status. Denies passing out or loss of consciousness. Denies dizziness or lightheadedness. Denies headache. Denies weakness or paralysis or loss of use of either side. Denies problems with gait or speech. Denies sensory loss, numbness, or tingling. Denies seizures. ALL OTHER SYSTEMS REVIEWED AND NEGATIVE. Dictation was performed using [employer] voice recognition software - REPRODUCTIVE Reproductive: DENIES: : Past Medical History - Social History Smoking Status: Unknown if Ever Smoked Family History: Reviewed & Not Pertinent - Past Medical History Cardiac Medical History: Denies: Hx Coronary Artery Disease, Hx Heart Attack, Hx Hypertension Pulmonary Medical History: Denies: Hx Asthma, Hx Bronchitis, Hx COPD, Hx Pneumonia Neurological Medical History: Reports: Hx Migraine. Denies: Hx Cerebrovascular Accident, Hx Seizures Endocrine Medical History: Denies: Hx Diabetes Mellitus Type 2 Renal/ Medical History: Denies: Hx Peritoneal Dialysis Musculoskeltal Medical History: Denies Hx Arthritis Skin Medical History: Reports Hx MRSA Past Surgical History: Reports: Hx Abdominal Surgery, Hx Section - x2, Other - Penetrating abdominal trauma with bowel resection - Immunizations Immunizations up to date: Yes Hx Diphtheria, Pertussis, Tetanus Vaccination: Yes - 09/20/15 Vertical Provider Document - CONSTITUTIONAL Agree With Documented VS: Yes Notes: PHYSICAL EXAMINATION: GENERAL: Well-appearing, well-nourished and in no acute distress. A&Ox4 LUNGS: Breath sounds clear to auscultation bilaterally and equal. No wheezes rales or rhonchi. HEART: Regular rate and rhythm without murmurs, rubs, gallops. ABDOMEN: Soft, nontender, nondistended abdomen. No guarding, no rebound. No masses appreciated. Normal bowel sounds present. No CVA tenderness bilaterally. No pulsatile mass. Musculoskeletal: Ext b/l: FROM to passive/active. Strength 5+/5. No deficits noted. No bony tenderness of extremities. Back: FROM to passive/active. Strength 5+/5. No vertebral point tenderness, stepoffs, or deformities. No other bony tenderness or ecchymosis. SLR negative b/l. + mild tenderness to the L-paraspinal mm b/l. Extremities: No cyanosis, clubbing, or edema b/l. Peripheral pulses 2+. Capillary refill less than 2 seconds. NEUROLOGICAL: Normal speech, normal gait. Normal sensory, motor exams. Reflexes 2+ b/l. PSYCH: Normal mood, normal affect. SKIN: Warm, Dry, normal turgor, no rashes or lesions noted. - INFECTION CONTROL TRAVEL OUTSIDE OF THE [place] IN LAST 30 DAYS: No - RESPIRATORY O2 Sat by Pulse Oximetry: 99 Course - Re-evaluation Re-evalutation: 08/18/17 18:38 Pt does not wish to wait for the CBC, BMP. I do not have any objections. We will discharge and she can call us later tonight for the results. Patient is an afebrile, well-hydrated, 37-year-old female who presents ED with dysfunctional uterine bleeding and low back pain, suspect strain vs spasm. Vitals are stable. PE is otherwise unremarkable. No imaging warranted at this time based on H&P. CBC and BMP pending. Urinalysis was unremarkable and urine was negative. There is no protein in the urine on urinalysis today. Low suspicion/risk for acute appendicitis, bowel obstruction, acute cholecystitis, acute cholangitis, perforated diverticulitis, incarcerated hernia , pancreatitis, perforated ulcer, peritonitis, sepsis, pelvic inflammatory disease, ectopic , tubo-ovarian abscess, ovarian torsion, meningitis, fracture, expanding/ruptured AAA, cauda equina syndrome, epidural mass lesion/ abscess, herniated disc causing severe spinal stenosis, or other systemic emergent condition at this time. Patient is aware that her condition can change from initial presentation and she needs to monitor symptoms closely and seek medical attention if any acute changes. Conservative measures otherwise for symptoms. Recheck with OBGYN in 3-5 days. Recheck with your PCM in 3-5 days. Return to the ED with any worsening/concerning symptoms otherwise as reviewed in discharge. Patient is in agreement. 08/18/17 19:22 Pt was upset that we did not have the same urine results as what her PCM showed and wants to go to another medical facility. I tried professionally and respectfully to ask her why and she states that its because we don't have "anything showing up." I reiterated that she should still f/u with OBGYN and her PCM. Pt signed her discharge and left. I then discussed with our Nurse who stated that she was angry in the waiting room and was threatening to leave which got her back sooner for evaluation. Apparently, she was upset to begin with. - Vital Signs Vital signs: Temp Pulse Resp BP Pulse Ox 98.8 F 79 20 137/88 H 99 08/18/17 16:51 08/18/17 16:51 08/18/17 16:51 08/18/17 16:51 08/18/17 16:51 - Laboratory Laboratory results interpreted by me: 08/18/17 17:45 Urine Blood LARGE H Discharge - Discharge Clinical Impression: Dysfunctional uterine bleeding Low back pain Qualifiers: Chronicity: acute Back pain laterality: bilateral Sciatica presence: without sciatica Qualified Code(s): M54.5 - Low back pain Condition: Stable Disposition: HOME, SELF-CARE Instructions: Dysfunctional Uterine Bleeding ([facility]), Ice Packs ([facility]), Low Back Pain ([facility]), Ob-Loom Changeover Operator Doctors, Stretching Exercises for the Back ([facility]), Warm Packs ([facility]) Additional Instructions: Rest, Ice Tylenol/ibuprofen as needed Light stretches daily Strength exercises as able Moist heat and massage may help F/u with your PCP in 3-5 days for a recheck You may call in 2-3 hours for your lab results. Call OBGYN to schedule an appointment for further evaluation and management. Consider consult(s) with Orthopedics/physical therapy for ongoing/worsening symptoms Return to the ED with any worsening symptoms and/or development of fever, headache, chest pain, palpitations, syncope, shortness of breath, trouble breathing, abdominal pain, n/v/d, muscle weakness/paralysis, numbness/tingling, swelling, redness, or other worsening symptoms that are concerning to you. Forms: Elevated Blood Pressure Referrals: [facility] [Provider Group] - Follow up as needed
[2017-08-18 20:07] VITALS: BP 137/88
== END 2017-08-18 19:34 | disposition home or self-care (01) ==
LOC: ER 16:25
DX: N93.8 Other specified abnormal uterine and vaginal bleeding (principal); M54.5 Low back pain
CPT/HCPCS: 81001; 81025; 87086; 87088; 99284

== ENCOUNTER 2017-10-05 07:07 | Emergency (ER) | payer MEDICAID ==
[2017-10-05 07:28] VITALS: BP 123/77
--- NOTE | 2017-10-05 08:25 | ER Document Report ---
HPI - HPI Patient complains to provider of: cough and cold symptoms Onset: Other - less than a week Quality of pain: Achy Pain Level: 5 Context: 37-year-old female complaining of low back pain, sore throat, congestion, cough , myalgias for 3 days. 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 She has been taking amox-cne-xkfdish medicine without relief. Upon my entry to the room she was covered up with a blanket and immediately confrontational, angry in voice, body movements enough to frighten me and get a nurse to be in the room during rest of history and physical exam. She did not want to remove her jackets or assist me in getting physical exam done. I asked her why she was upset and she said it is because she feels fo bad. Associated Symptoms: Other - see above Exacerbated by: Denies Relieved by: Denies - ROS ROS below otherwise negative: Yes Systems Reviewed and Negative: Yes All other systems reviewed and negative - CONSTITUTIONAL Constitutional: DENIES: Fever, Chills - EENT EENT: REPORTS: Sore Throat, Ear Pain - NEURO Neurology: REPORTS: Headache - REPRODUCTIVE Reproductive: DENIES: : Past Medical History - General Information source: Patient - Social History Smoking Status: Current Every Day Smoker Chew tobacco use (# tins/day): No Frequency of alcohol use: None Drug Abuse: None Lives with: Family Family History: Reviewed & Not Pertinent Patient has suicidal ideation: No Patient has homicidal ideation: No Neurological Medical History: Reports: Hx Migraine Renal/ Medical History: Denies: Hx Peritoneal Dialysis Skin Medical History: Reports Hx MRSA Past Surgical History: Reports: Hx Abdominal Surgery - bowel removal, Hx Section - x2, Other - Penetrating abdominal trauma with bowel resection - Immunizations Immunizations up to date: Yes Hx Diphtheria, Pertussis, Tetanus Vaccination: Yes - 09/20/15 Vertical Provider Document - CONSTITUTIONAL Agree With Documented VS: Yes Exam Limitations: No Limitations General Appearance: No Apparent Distress - INFECTION CONTROL TRAVEL OUTSIDE OF THE [place] IN LAST 30 DAYS: No - HEENT HEENT: Pharyngeal Erythema - minimal. negative: Conjuctival Injection, Tympanic Membrane Red - NECK Neck: Supple. negative: Lymphadenopathy-Left, Lymphadenopathy-Right - RESPIRATORY Respiratory: Breath Sounds Normal, No Respiratory Distress O2 Sat by Pulse Oximetry: 97 - CARDIOVASCULAR Cardiovascular: Regular Rate, Regular Rhythm - GI/ABDOMEN Gastrointestinal: Abdomen Soft, Abdomen Non-Tender, No Organomegaly - MUSCULOSKELETAL/EXTREMETIES Musculoskeletal/Extremeties: ENEIDA LEAL - NEURO Level of Consciousness: Awake, Alert, Appropriate - DERM Integumentary: Warm, Dry Course - Re-evaluation Re-evalutation: 10/05/17 08:59 pt stated after discussion about illness, and possible treatments, she stated, "if you can't do anything for me than I just wasted my time, I will go home and go back and lay in bed and croak. " She then stormed out without discharge instructions. 10/06/17 21:38 - Vital Signs Vital signs: Temp Pulse Resp BP Pulse Ox 98.5 F 75 18 123/77 97 10/05/17 07:26 10/05/17 07:26 10/05/17 07:26 10/05/17 07:26 10/05/17 07:26 Discharge - Discharge Clinical Impression: Myalgia Upper respiratory infection Qualifiers: URI type: unspecified viral URI Qualified Code(s): J06.9 - Acute upper respiratory infection, unspecified Condition: Good Disposition: HOME, SELF-CARE Instructions: Acetaminophen, Use of Aowv-Bjj-Ccgfpil Ibuprofen ([facility]), Upper Respiratory Illness ([facility]) Additional Instructions: plenty of fluids cool mist humidifier over the counter tylenol and motrin for bodyaches return to er if symptoms worsen, chest pain or sob.
== END 2017-10-05 09:04 | disposition home or self-care (01) ==
LOC: ER 07:07
DX: J06.9 Acute upper respiratory infection, unspecified (principal); J02.9 Acute pharyngitis, unspecified; R05 Cough; M54.5 Low back pain; M79.1 Myalgia; H92.09 Otalgia, unspecified ear; R51 Headache; F17.200 Nicotine dependence, unspecified, uncomplicated
CPT/HCPCS: 99283

== ENCOUNTER → 2017-10-26 | Outpatient (CLI) | payer MEDICAID | LOC: OD 15:53 | PROVIDERS: ATTEND Nurse Practitioner Acute Care | DX: N39.0 Urinary tract infection, site not specified (principal) | CPT/HCPCS: 87086 ==

== ENCOUNTER 2018-04-22 10:26 | Emergency (ER) | payer MEDICAID ==
[2018-04-22 10:32] VITALS: BP 114/69
--- NOTE | 2018-04-22 11:29 | ER Document Report ---
HPI - HPI Pain Level: 4 Notes: Patient is a 38-year-old female no significant past medical history presents to the ED complaining of a painful lump to her right lateral cheek near her ear 1- 2 months. That started getting more painful more swollen over the last couple days. Patient states that she has not noticed any purulent discharge or streaks. She has not had any recent illness, scabs, or infection to her scalp/ head. She is eating and drinking without any difficulties. She is urinating normally and having normal bowel movements. Denies any history of MRSA. Denies any headache, fever, head injury, neck pain, URI, sore throat, chest pain , palpitations, syncope, cough, shortness of breath, wheeze, dyspnea, abdominal pain, nausea/vomiting/diarrhea, urinary retention, dysuria, hematuria, or rash. - ROS Systems Reviewed and Negative: Yes All other systems reviewed and negative - REPRODUCTIVE Reproductive: DENIES: : Past Medical History - Social History Smoking Status: Current Every Day Smoker Chew tobacco use (# tins/day): No Frequency of alcohol use: Occasional Drug Abuse: None Family History: Reviewed & Not Pertinent Patient has suicidal ideation: No Patient has homicidal ideation: No - Past Medical History Cardiac Medical History: Denies: Hx Coronary Artery Disease, Hx Heart Attack, Hx Hypertension Pulmonary Medical History: Denies: Hx Asthma, Hx Bronchitis, Hx COPD, Hx Pneumonia Neurological Medical History: Reports: Hx Migraine. Denies: Hx Cerebrovascular Accident, Hx Seizures Endocrine Medical History: Denies: Hx Diabetes Mellitus Type 2 Renal/ Medical History: Denies: Hx Peritoneal Dialysis Musculoskeletal Medical History: Denies Hx Arthritis Skin Medical History: Reports Hx MRSA Past Surgical History: Reports: Hx Abdominal Surgery - bowel resection, Hx Section - x2, Other - Penetrating abdominal trauma with bowel resection - Immunizations Immunizations up to date: Yes Hx Diphtheria, Pertussis, Tetanus Vaccination: Yes - 09/20/15 Vertical Provider Document - CONSTITUTIONAL Agree With Documented VS: Yes Notes: PHYSICAL EXAMINATION: GENERAL: Well-appearing, well-nourished and in no acute distress. A&Ox4. Answers questions appropriately. Moves comfortably w/o notable distress HEAD: Atraumatic, normocephalic. EYES: Pupils equal round and reactive to light, extraocular movements intact, sclera anicteric, conjunctiva are normal. ENT: EAC clear b/l. TM's intact b/l without erythema, fluid, or perforation. Nares patent and without discharge. oropharynx no erythema without exudates. No tonsilar hypertrophy without erythema or exudate. No palatine shift. Uvula midline. No tongue protrusion. No drooling, hoarseness, or airway compromise. Moist mucous membranes. No sinus tenderness. Face: Rt lateral jaw area pre-infraauricle. + raised round fluctuant area approx 1cm diameter noted with + tenderness and minimal surrounding induration. No discharge or streaks. NECK: Normal range of motion, supple without lymphadenopathy. No rigidity/ meningismus. LUNGS: Breath sounds clear to auscultation bilaterally and equal. No wheezes rales or rhonchi. No retractions HEART: Regular rate and rhythm without murmurs, rubs, gallops. NEUROLOGICAL: Normal speech, normal gait. Normal sensory, motor exams PSYCH: Normal mood, normal affect. SKIN: as above. - INFECTION CONTROL TRAVEL OUTSIDE OF THE [place] IN LAST 30 DAYS: No Course - Re-evaluation Re-evalutation: 04/22/18 11:45 Patient is an afebrile, well-hydrated, 38-year-old female who presents to the ED with an abscess to the right lateral cheek/3/infra auricle area. I suspect that this could be an infected/inflamed sebaceous cyst. Vitals are acceptable without any significant tachycardia, tachypnea, or hypoxia. PE is otherwise unremarkable. I&D was performed successfully without any complications and minimal packing was placed as this was a small abscess. Wound culture was obtained. Patient tolerated procedure well without any complications. Wound dressing was placed and wound instructions reviewed. No other labs or imaging warranted at this time based on H&P. Patient is nontoxic-appearing and is tolerating p.o. without difficulties. I will be sending her home with prescription for Keflex and Bactrim. Conservative measures otherwise for symptoms. Recheck with your PCM in 2-3 days. Return to the ED with any worsening/concerning symptoms otherwise as reviewed in discharge. Patient is in agreement. - Vital Signs Vital signs: Temp Pulse Resp BP Pulse Ox 98.8 F 72 16 114/69 100 04/22/18 10:31 04/22/18 10:31 04/22/18 10:04/22/18 10:04/22/18 10:31 Procedures - Incision and Drainage Right Face Time completed: 11:45 - Patient tolerated procedure well without any complications. Wound culture obtained. Type: Simple Anesthetic type: 1% Lidocaine mL's of anesthetic: 5 Blade size: 11 I&D procedure: Iodoform packing placed, Sterile dressing applied, Other - chlorhexadine/saline Incision Method: Incision made by scalpel Amount/type of drainage: moderate purulent and sebaceous discharge Discharge - Discharge Clinical Impression: Abscess Condition: Stable Disposition: HOME, SELF-CARE Instructions: Abscess ([facility]), Cephalexin ([facility]), Post Incision and Drainage, Trimethoprim-Sulfa ([facility]) Additional Instructions: Do not shower or bathe for 24 hours. After 24 hours she may shower but no submersion of the wound under water. Keep the original dressing on the wound for 24 hours unless the drainage soaks through. Change the dressing daily thereafter and use a small amount of triple antibiotic ointment over the open wound. Return to the ED and/or your PCM in 2-3 days for recheck and continue direction for wound packing. Monitor for any signs of worsening pain or redness , streaks, and/or fever. Return to the ED if noticing any of the above symptoms or as needed. Take medications as directed. Prescriptions: Cephalexin Monohydrate [Keflex 500 mg Capsule] 500 mg PO TID #30 capsule Sulfamethoxazole/Trimethoprim [Bactrim Ds Tablet] 1 each PO BID #20 tablet Referrals: XI LIU NP [Primary Care Provider] - 04/25/18 MADDY FERMIN MD [ACTIVE STAFF] - Follow up as needed
== END 2018-04-22 11:55 | disposition home or self-care (01) ==
LOC: ER 10:26
PROC: 0H91XZZ Drainage of Face Skin, External Approach (ICD-10-PCS; principal; 2018-04-22)
DX: L02.01 Cutaneous abscess of face (principal); F17.200 Nicotine dependence, unspecified, uncomplicated; Z86.14 Personal history of Methicillin resistant Staphylococcus aureus infection
CPT/HCPCS: 99283; 87070; 87205; 87075; 87077; 10060; A6266

== ENCOUNTER 2018-06-27 07:12 | Emergency (ER) | payer MEDICAID ==
[2018-06-27 07:20] VITALS: BP 124/89
--- NOTE | 2018-06-27 07:46 | ER Document Report ---
HPI - HPI Pain Level: 5 Notes: Patient is a 38-year-old female with no significant past medical history who presents to the ED complaining of right sided neck and shoulder muscle spasming over the last several days. Patient does not recall any injury or illness. Pain does not radiate otherwise. Denies any IV drug use. Movement makes her pain worse during acute exacerbations. Denies any headache, fever, head injury , changes in vision/speech/mentation/hearing, URI, sore throat, chest pain, palpitations, syncope, cough, shortness of breath, wheeze, dyspnea, abdominal pain, nausea/vomiting/diarrhea, urinary retention, dysuria, hematuria, loss of control of bowel or bladder, numbness/tingling, saddle anesthesia, muscle paralysis/weakness, or rash. - ROS Systems Reviewed and Negative: Yes All other systems reviewed and negative - REPRODUCTIVE Reproductive: DENIES: : Past Medical History - Social History Smoking Status: Unknown if Ever Smoked Family History: Reviewed & Not Pertinent - Past Medical History Cardiac Medical History: Denies: Hx Coronary Artery Disease, Hx Heart Attack, Hx Hypertension Pulmonary Medical History: Denies: Hx Asthma, Hx Bronchitis, Hx COPD, Hx Pneumonia Neurological Medical History: Reports: Hx Migraine. Denies: Hx Cerebrovascular Accident, Hx Seizures Endocrine Medical History: Denies: Hx Diabetes Mellitus Type 2 Renal/ Medical History: Denies: Hx Peritoneal Dialysis Musculoskeletal Medical History: Denies Hx Arthritis Skin Medical History: Reports Hx MRSA Past Surgical History: Reports: Hx Abdominal Surgery - bowel resection, Hx Section - x2, Other - Penetrating abdominal trauma with bowel resection - Immunizations Immunizations up to date: Yes Hx Diphtheria, Pertussis, Tetanus Vaccination: Yes - 09/20/15 Vertical Provider Document - CONSTITUTIONAL Agree With Documented VS: Yes Notes: PHYSICAL EXAMINATION: GENERAL: Well-appearing, well-nourished and in no acute distress. A&Ox4. Answers questions appropriately. HEAD: Atraumatic, normocephalic. Non-tender. EYES: Pupils equal round and reactive to light, extraocular movements intact, sclera anicteric, conjunctiva are normal. No nystagmus. vis schluer intact. ENT: EAC clear b/l. TM's intact b/l without erythema, fluid, or perforation. Nares patent and without discharge. oropharynx clear without exudates. No tonsilar hypertrophy or erythema. Moist mucous membranes. No sinus tenderness. NECK: Normal range of motion, supple without lymphadenopathy. No rigidity/ meningismus. No midline tenderness. Spurling negative. NEXUS negative. + spasming and tenderness to the Rt trapezius mm to the shoulder and inferiorly, correlates with pain described. LUNGS: Breath sounds clear to auscultation bilaterally and equal. No wheezes rales or rhonchi. HEART: Regular rate and rhythm without murmurs, rubs, gallops. Musculoskeletal: UE's b/l: FROM to passive/active. Strength 5+/5. No deficits noted. No bony tenderness of extremities. Extremities: No cyanosis, clubbing, or edema b/l. Peripheral pulses 2+. Capillary refill less than 2 seconds. NEUROLOGICAL: Cranial nerves grossly intact. Normal speech, normal gait. Normal sensory, motor exams. Reflexes 2+ b/l. PSYCH: Normal mood, normal affect. SKIN: Warm, Dry, normal turgor, no rashes or lesions noted. - INFECTION CONTROL TRAVEL OUTSIDE OF THE [place] IN LAST 30 DAYS: No Course - Re-evaluation Re-evalutation: 06/27/18 07:50 Patient is an afebrile, well-hydrated, 38-year-old female who presents to the ED with trapezius muscle spasming on the right side. Vitals are acceptable without any significant tachycardia, tachypnea, or hypoxia. PE is otherwise unremarkable aside from the reproducible tenderness. Patient is nontoxic- appearing and is tolerating p.o. without any difficulties. No labs or imaging warranted at this time. Low suspicion for any meningitis, fracture, expanding/ ruptured AAA, cauda equina syndrome, epidural mass lesion/abscess, herniated disc causing severe spinal stenosis, or other systemic infection at this time. Patient is aware that this condition can change from initial presentation and that she needs monitor symptoms closely for any acute changes. I will send her home with a prescription for baclofen and a prednisone taper. Recheck with your PCM in 3-5 days. Consider consult orthopedics. Return to the ED with any worsening/concerning symptoms otherwise as reviewed in discharge. Patient is in agreement. - Vital Signs Vital signs: Temp Pulse Resp BP Pulse Ox 98.4 F 72 21 H 124/89 H 06/27/18 07:18 06/27/18 07:18 06/27/18 07:18 06/27/18 07:18 Discharge - Discharge Clinical Impression: Trapezius muscle spasm Condition: Stable Disposition: HOME, SELF-CARE Instructions: Muscle Relaxers ([facility]) Additional Instructions: Rest, Ice Tylenol/ibuprofen as needed Light stretches daily Strength exercises as able Moist heat and massage may help F/u with your PCP in 3-5 days for a recheck Consider consult(s) with Orthopedics/physical therapy for ongoing/worsening symptoms Return to the ED with any worsening symptoms and/or development of fever, headache, chest pain, palpitations, syncope, shortness of breath, trouble breathing, abdominal pain, n/v/d, muscle weakness/paralysis, numbness/tingling, swelling, redness, or other worsening symptoms that are concerning to you. Prescriptions: Baclofen [Baclofen 10 mg Tablet] 5 - 10 mg PO BID PRN #10 tablet PRN Reason: Prednisone 20 mg PO ASDIR #18 tablet Forms: Elevated Blood Pressure Referrals: XI LIU NP [Primary Care Provider] - Follow up as needed [facility] [Provider Group] - Follow up as needed
== END 2018-06-27 08:12 | disposition home or self-care (01) ==
LOC: ER 07:12
DX: M62.830 Muscle spasm of back (principal)
CPT/HCPCS: 99283

== ENCOUNTER → 2018-08-04 | Outpatient (CLI) | payer MEDICAID ==
[2018-08-04 12:52] LABS: INTERNATIONAL RATION (INR) 1.03
[2018-08-04 12:54] LABS: ABSOLUTE LYMPHOCYTES (AUTO) 1.6 10^3/uL (0.5-4.7); ABSOLUTE MONOCYTES (AUTO) 0.2 10^3/uL (0.1-1.4); ABSOLUTE NEUT (AUTO) 1.5 10^3/uL (1.7-8.2); BASOPHILS % (AUTO) 0.6 % (0-2); EOSINOPHILS % (AUTO) 0.1 % (0-6); HEMATOCRIT 39.4 % (36.0-47.0); HEMOGLOBIN 13.5 g/dL (12.0-15.5); LYMPHOCYTES % (AUTO) 48.6 % (13-45); MEAN CORPUSCULAR HEMOGLOBIN 31.4 pg (27.0-33.4); MEAN CORPUSCULAR HGB CONC 34.2 g/dL (32.0-36.0); MEAN CORPUSCULAR VOLUME 92 fl (80-97); MONOCYTES % (AUTO) 7.1 % (3-13); PLATELET COUNT 198 10^3/uL (150-450); RED BLOOD COUNT 4.29 10^6/uL (3.72-5.28); RED CELL DISTRIBUTION WIDTH 13.1 % (11.5-14.0); SEGMENTED NEUTROPHILS % (AUTO) 43.6 % (42-78); TOTAL CELLS COUNTED % (AUTO) 100 %; WHITE BLOOD COUNT 3.3 10^3/uL (4.0-10.5)
[2018-08-04 13:09] LABS: ALANINE AMINOTRANSFERASE 18 U/L (9-52); ALBUMIN 4.2 g/dL (3.5-5.0); ALKALINE PHOSPHATASE 45 U/L (38-126); ANION GAP 11 (5-19); ASPARTATE AMINO TRANSFERASE 19 U/L (14-36); BILIRUBIN,DIRECT 0.4 mg/dL (0.0-0.4); BILIRUBIN,TOTAL 0.7 mg/dL (0.2-1.3); BLOOD UREA NITROGEN 7 mg/dL (7-20); CALCIUM 9.3 mg/dL (8.4-10.2); CARBON DIOXIDE 22 mmol/L (22-30); CHLORIDE 109 mmol/L (98-107); GLUCOSE 78 mg/dL (75-110); POTASSIUM 4.2 mmol/L (3.6-5.0)
== END ==
LOC: OD 11:44
PROVIDERS: ATTEND Nurse Practitioner Acute Care
DX: R23.8 Other skin changes (principal)
CPT/HCPCS: 36415; 80053; 85025; 85610

== ENCOUNTER → 2019-04-22 | Outpatient (CLI) | payer MEDICAID ==
[2019-04-22 13:30] LABS: ABSOLUTE BASOPHILS # (AUTO) 0.1 10^3/uL (0.0-0.2); ABSOLUTE LYMPHOCYTES (AUTO) 1.8 10^3/uL (0.5-4.7); ABSOLUTE MONOCYTES (AUTO) 0.3 10^3/uL (0.1-1.4); ABSOLUTE NEUT (AUTO) 1.8 10^3/uL (1.7-8.2); BASOPHILS % (AUTO) 1.4 % (0-2); EOSINOPHILS % (AUTO) 0.3 % (0-6); HEMATOCRIT 42.5 % (36.0-47.0); HEMOGLOBIN 14.3 g/dL (12.0-15.5); LYMPHOCYTES % (AUTO) 46.3 % (13-45); MEAN CORPUSCULAR HEMOGLOBIN 30.9 pg (27.0-33.4); MEAN CORPUSCULAR HGB CONC 33.6 g/dL (32.0-36.0); MEAN CORPUSCULAR VOLUME 92 fl (80-97); MONOCYTES % (AUTO) 7.3 % (3-13); PLATELET COUNT 206 10^3/uL (150-450); RED BLOOD COUNT 4.62 10^6/uL (3.72-5.28); RED CELL DISTRIBUTION WIDTH 13.3 % (11.5-14.0); SEGMENTED NEUTROPHILS % (AUTO) 44.7 % (42-78); TOTAL CELLS COUNTED % (AUTO) 100 %
[2019-04-22 13:59] LABS: FREE T3 4.2 pg/mL (2.77-5.27); FREE T4 (FREE THYROXINE) 0.96 ng/dL (0.78-2.19)
[2019-04-22 14:12] LABS: THYROID STIMULATING HORMONE 0.63 uIU/mL (0.47-4.68)
[2019-04-22 15:01] LABS: CHLAM PCR NOT DETECTED (NOT DETECT)
== END ==
LOC: LAB 13:01
PROVIDERS: ATTEND Nurse Practitioner Acute Care
DX: E01.0 Iodine-deficiency related diffuse (endemic) goiter (principal); R53.83 Other fatigue
CPT/HCPCS: 36415; 84439; 84443; 84481; 85025; 87491; 87591

== ENCOUNTER → 2019-04-27 | Outpatient (CLI) | payer MEDICAID ==
--- NOTE | 2019-04-27 16:32 | RADIOLOGY REPORT (SQ) ---
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 TECHNIQUE: Dynamic and static nolan-scale images acquired of the thyroid gland. Selected additional c olor/power Doppler images recorded. All images stored to PACS. LIMITATIONS: None. FINDINGS: RIGHT LOBE: Enlarged, 5.9 x 2.3 x 2 cm. Heterogeneous echotexture Multiple small nodules . LEFT LOBE: Enlarged, 7.8 x 3.5 x 3.1 cm. Heterogeneous echotexture. Multiple nodules. The largest measures 4.4 x 3.1 x 2.7 cm. ISTHMUS: Enlarged, 5 mm. Homogeneous echotexture. No cystic or solid masses. OTHER: No other significant finding. IMPRESSION: Multinodular goiter. Consider biopsy of the larger nodules on the left because of size. TECHNICAL DOCUMENTATION: JOB ID: [id number] [employer]- All Rights Reserved Reading location - IP/workstation name: [email or web address]
== END ==
LOC: RAD 15:51
PROVIDERS: ATTEND Nurse Practitioner Family
DX: E04.2 Nontoxic multinodular goiter (principal)
CPT/HCPCS: 76536

== ENCOUNTER 2019-09-15 09:31 | Emergency (ER) | payer SELFPAY ==
[2019-09-15 10:07] VITALS: BP 124/85
--- NOTE | 2019-09-15 10:51 | ER Document Report ---
HPI - HPI Time Seen by Provider: 09/15/19 10:41 Pain Level: 5 Notes: Patient is a 39-year-old female who presents complaining of acute on chronic neck pain primarily on the left side that is been ongoing since . Patient states that she was in the dressing room changing when she felt a little pop in the area. Patient states that she has had intermittent pain since then and re-exacerbated the pain on [place]. Patient states the pain will radiate into her superior neck and shoulder area, but does not radiate any further. She is able to eat and drink without difficulty. She is urinating normally. No other concerns or complaints. Denies any headache, fever, head injury, neck pain, changes in vision/speech/mentation/hearing, URI, sore throat, chest pain, palpitations, syncope, cough, shortness of breath, wheeze, dyspnea, abdominal pain, nausea/vomiting/diarrhea, urinary retention, dysuria, hematuria, loss of control of bowel or bladder, numbness/tingling, saddle anesthesia, muscle paralysis/weakness, or rash. - ROS Systems Reviewed and Negative: Yes All other systems reviewed and negative - REPRODUCTIVE Reproductive: DENIES: : Past Medical History - Social History Smoking Status: Current Every Day Smoker Chew tobacco use (# tins/day): No Frequency of alcohol use: None Drug Abuse: None Family History: Reviewed & Not Pertinent Patient has suicidal ideation: No Patient has homicidal ideation: No - Past Medical History Cardiac Medical History: Denies: Hx Coronary Artery Disease, Hx Heart Attack, Hx Hypertension Pulmonary Medical History: Denies: Hx Asthma, Hx Bronchitis, Hx COPD, Hx Pneumonia Neurological Medical History: Reports: Hx Migraine. Denies: Hx Cerebrovascular Accident, Hx Seizures Endocrine Medical History: Denies: Hx Diabetes Mellitus Type 2 Renal/ Medical History: Denies: Hx Peritoneal Dialysis Musculoskeletal Medical History: Denies Hx Arthritis Skin Medical History: Reports Hx MRSA Past Surgical History: Reports: Hx Abdominal Surgery - bowel resection, Hx Section - x2, Other - Penetrating abdominal trauma with bowel resection - Immunizations Immunizations up to date: Yes Hx Diphtheria, Pertussis, Tetanus Vaccination: Yes - 09/20/15 Vertical Provider Document - CONSTITUTIONAL Agree With Documented VS: Yes Notes: PHYSICAL EXAMINATION: GENERAL: Well-appearing, well-nourished and in no acute distress. NECK: Normal range of motion, supple without lymphadenopathy. Non-tender. Spurling negative. No rigidity/meningismus. + reproducible tenderness left c- paraspinal muscle and the left trapezius muscle with mild spasming/trigger point noted. LUNGS: Breath sounds clear to auscultation bilaterally and equal. No wheezes rales or rhonchi. HEART: Regular rate and rhythm without murmurs, rubs, gallops. Musculoskeletal: UE's b/l: FROM to passive/active. Strength 5+/5. No deficits noted. No bony tenderness of extremities. Back: FROM to passive/active. Strength 5+/5. No vertebral point tenderness, stepoffs, or deformities. No other bony tenderness, erythema, swelling, or ecchymosis. Extremities: No cyanosis, clubbing, or edema b/l. Peripheral pulses 2+. Capillary refill less than 2 seconds. NEUROLOGICAL: Normal speech, normal gait. Normal sensory, motor exams. Reflexes 2+ b/l. PSYCH: Normal mood, normal affect. SKIN: Warm, Dry, normal turgor, no rashes or lesions noted. - INFECTION CONTROL TRAVEL OUTSIDE OF THE [place] IN LAST 30 DAYS: No Course - Re-evaluation Re-evalutation: 09/15/19 10:48 Patient is an afebrile, well-hydrated, 39-year-old female who presents to the ED with left neck pain. Vitals are acceptable. PE is otherwise unremarkable for any focal neurological deficits. She has no significant tachycardia, tachypnea, or hypoxia. She is nontoxic-appearing and is tolerating p.o. without difficulties. There are no signs of infection. No other red flag symptoms noted. No other labs or imaging warranted at this time based on H&P. Low suspicion for any meningitis, fracture, expanding/ruptured AAA, cauda equina syndrome, epidural mass lesion/abscess, herniated disc causing severe spinal stenosis, or other systemic infection at this time. Patient is aware that this condition can change from initial presentation and that she needs monitor symptoms closely for any acute changes. I will send her home with a prescription for robaxin and motrin. Conservative measures otherwise for symptoms. Recheck with your PCM in 3-5 days. Consider consult with orthopedic/physical therapy. Return to the ED with any worsening/concerning symptoms otherwise as reviewed discharge. Patient is in agreement. - Vital Signs Vital signs: Temp Pulse Resp BP Pulse Ox 98.6 F 64 16 124/85 100 09/15/19 10:07 09/15/19 10:07 09/15/19 10:07 09/15/19 10:07 09/15/19 10:07 Discharge - Discharge Clinical Impression: Neck pain on left side Condition: Stable Disposition: HOME, SELF-CARE Additional Instructions: Rest, Ice Tylenol/ibuprofen as needed Light stretches daily Strength exercises as able Moist heat and massage may help F/u with your PCP in 3-5 days for a recheck Consider consult(s) with Orthopedics/physical therapy for ongoing/worsening symptoms Return to the ED with any worsening symptoms and/or development of fever, headache, chest pain, palpitations, syncope, shortness of breath, trouble breathing, abdominal pain, n/v/d, blood in stool/urine, loss of control of bowel/bladder, urinary retention, muscle weakness/paralysis, saddle anesthesia, numbness/tingling, or other worsening symptoms that are concerning to you. Prescriptions: Ibuprofen [Motrin 800 mg Tablet] 800 mg PO Q8H PRN #15 tab PRN Reason: Methocarbamol [Robaxin 750 mg Tablet] 750 mg PO TID PRN #10 tablet PRN Reason: Referrals: FARHAD YEH FNP-C [Primary Care Provider] - Follow up as needed [facility] [Provider Group] - Follow up as needed
== END 2019-09-15 11:16 | disposition home or self-care (01) ==
LOC: ER 09:31
DX: M54.2 Cervicalgia (principal); M62.830 Muscle spasm of back; F17.200 Nicotine dependence, unspecified, uncomplicated
CPT/HCPCS: 99283